=== PATIENT | male | born 1935 | race Caucasian/White ===

== ENCOUNTER 2022-07-24 17:12 | Inpatient (IN) | payer MEDICARE ==
[~2022-07-24] VITALS: Ht 162.6 cm; Wt 54.4 kg
[2022-07-24] VITALS (28 sets, daily range): BP systolic 74–155; BP diastolic 48–86
[~2022-07-24 17:12] MED LIST: CLON0.1T PO; ESCI10TA PO; ESOM40CA PO; GABA300C PO; LISI-651 PO; METO25TA3 PO; SIMV40TA2 PO; WARF-67 PO
[2022-07-24 17:38] LABS: BG BASE EXCESS -0.4 mmol/L (-2.0-2.0); BG CARBOXYHEMOGLOBIN 0.2 % (0.5-1.5); BG DEOXYHEMOGLOBIN 6.4 % (0.0-5.0); BG FRACTION INSPIRED OXYGEN 28; BG HCO3 ACT 23.6 mmol/L (22.0-26.0); BG METHEMOGLOBIN 0.1 % (0.0-1.5); BG OXYGEN SATURATION 93.6 % (92.0-98.5); BG OXYHEMOGLOBIN 93.3 % (94.0-97.0); BG PCO2 36.5 mmHg (35.0-45.0); BG PH 7.429 (7.350-7.450); BG PO2 67.3 mmHg (75.0-100.0); BG SAMPLE SITE RIGHT BRACHIAL; BG TOTAL HEMOGLOBIN 12.5 g/dL (12.0-18.0); BG VENT MODE NASAL CANNULA
[2022-07-24] MEDS ORDERED: MAGNESIUM/ALUMINUM HYDROXIDE/SIMETHICONE 30ML UDC PO PRN (17:45)
[2022-07-24] MEDS ORDERED: IPRATROPIUM/ALBUTEROL 0.5-3(2.5)MG/3ML NEB NEB PRN (17:45)
[2022-07-24] MEDS ORDERED: GUAIFENESIN 200MG/10ML SUGAR FREE UDC PO PRN (17:45)
[2022-07-24] MEDS ORDERED: CLONIDINE 0.1MG TABLET PO PRN (17:45)
[2022-07-24] MEDS ORDERED: HYDROCODONE/ACETAMINOPHEN 5/325MG TABLET PO PRN (17:45)
[2022-07-24] MEDS ORDERED: ONDANSETRON HCL 4MG/2ML INJ IV PRN (17:45)
[2022-07-24] MEDS ORDERED: MORPHINE SULFATE 2 MG/ML CPJ (NOT FOR IM USE) IV PRN (17:45)
[2022-07-24] MEDS ORDERED: ACETAMINOPHEN 325MG TABLET PO PRN ×2 (17:45)
[2022-07-24] MEDS ORDERED: NOREPINEPHRINE 8 MG in DEXT 5% WATER 242 ML IV PRN (18:00)
[2022-07-24] MEDS ORDERED: ENOXAPARIN 40MG/0.4ML SYR SUBCUT SCH (18:00)
[2022-07-24] MEDS ORDERED: PHENYLEPHRINE 50 MG in DEXT 5% WATER 245 ML IV PRN (18:00)
[2022-07-24] MEDS ORDERED: LEVOFLOXACIN 500MG PREMIX 100 ML IV SCH (18:30)
[2022-07-24] MEDS: NOREPINEPHRINE 32 MG in DEXT 5% WATER 218 ML IV PRN (18:48)
[2022-07-24] MEDS ORDERED: WARFARIN SODIUM 2MG TABLET PO NR (21:00)
[2022-07-24] MEDS ORDERED: DEXTROSE 50% WATER 50ML SYRINGE IV PRN ×2 (22:00)
[2022-07-24 22:48] LABS: INR 1.9; PROTHROMBIN TIME 19.3 sec (9.6-11.0)
[2022-07-24] MEDS: DEXT 5%/0.45% NACL 1000ML 1,000 ML IV SCH (23:11)
[2022-07-25] VITALS (92 sets, daily range): BP systolic 70–164; BP diastolic 47–84
[2022-07-25 06:19] LABS: HEMATOCRIT. 39.8 % (42.0-52.0); HEMOGLOBIN. 13.6 g/dL (14.0-18.0); MEAN CORPUSCULAR HEMOGLOBIN 31.1 pg (28.0-32.0); MEAN PLATELET VOLUME 9.3 fl (7.4-10.4); PLATELET 251 x1000/uL (130-400); RED BLOOD CELL COUNT 4.38 mill/uL (4.7-6.1); RED CELL DISTRIBUTION WIDTH 14.7 % (11.6-14.6)
[2022-07-25 06:36] LABS: INR 2.1; PROTHROMBIN TIME 21.4 sec (9.6-11.0)
[2022-07-25] MEDS: BLOOD SUGAR DIAGNOSTIC STRIP TEST SCH ×3 (06:44→12:32)
[2022-07-25 07:52] LABS: FOLIC ACID (FOLATE) SERUM 3.7 ng/mL (>5.38)
[2022-07-25 08:16] LABS: CLARITY URINE CLOUDY (CLEAR); COLOR URINE YELLOW (YELLOW); KETONES URINE NEGATIVE (NEGATIVE); LEUKOCYTE ESTERASE URINE 3+ (NEGATIVE); NITRITE URINE POSITIVE (NEGATIVE); OCCULT BLOOD URINE 3+ (NEGATIVE); PH URINE 5.5 (4.5-8.0); PROTEIN URINE 1+ (NEGATIVE); SPECIFIC GRAVITY URINE 1.014 (1.005-1.030)
[2022-07-25] MEDS: PANTOPRAZOLE 40MG DR TABLET PO SCH (08:34)
[2022-07-25 10:14] LABS: PLATELET ESTIMATE NORMAL
[2022-07-25 10:38] LABS: CHLORIDE 107 mEq/L (98-107)
[2022-07-25 11:16] LABS: PHOSPHORUS 2.7 mg/dL (2.5-4.9); T4 FREE 0.91 ng/dL (0.76-1.46); TOTAL IRON BINDING CAPACITY 186 ug/dL (250-450)
[2022-07-25] MEDS: NOREPINEPHRINE 32 MG in DEXT 5% WATER 218 ML IV PRN (17:18)
[2022-07-25] MEDS: MIDODRINE HCL 5MG TABLET PO SCH (22:41)
[2022-07-26] VITALS (87 sets, daily range): BP systolic 79–137; BP diastolic 30–87
[2022-07-26] MEDS: MIDODRINE HCL 5MG TABLET PO SCH ×4 (05:00→21:59)
[2022-07-26 06:06] LABS: INR 2.1
[2022-07-26 06:15] LABS: HEMATOCRIT. 34.7 % (42.0-52.0); HEMOGLOBIN. 11.8 g/dL (14.0-18.0); MEAN CORPUSCULAR HEMOGLOBIN 31.2 pg (28.0-32.0); MEAN CORPUSCULAR VOLUME 91.8 fL (80.0-94.0); MEAN PLATELET VOLUME 9.2 fl (7.4-10.4); PLATELET 203 x1000/uL (130-400); RED BLOOD CELL COUNT 3.78 mill/uL (4.7-6.1); RED CELL DISTRIBUTION WIDTH 15.2 % (11.6-14.6)
[2022-07-26 06:38] LABS: CHLORIDE 110 mEq/L (98-107)
[2022-07-26] MEDS: DEXT 5%/0.45% NACL 1000ML 1,000 ML IV SCH (06:56)
[2022-07-26 07:09] LABS: PLATELET ESTIMATE NORMAL
[2022-07-26] MEDS: PANTOPRAZOLE 40MG DR TABLET PO SCH (08:24)
[2022-07-26] MEDS ORDERED: MIDODRINE HCL 5MG TABLET PO NR (12:45)
[2022-07-26] MEDS ORDERED: LEVOFLOXACIN 250MG PREMIX 50 ML IV SCH (17:00)
[2022-07-26] MEDS ORDERED: NALOXONE HCL 0.4MG/ML VIAL IV PRN (17:15)
[2022-07-26] MEDS ORDERED: WARFARIN SODIUM 1MG TABLET PO NR (18:00)
[2022-07-26] MEDS: MEMANTINE HCL 10MG TABLET PO SCH (22:00)
[2022-07-27] VITALS (38 sets, daily range): BP systolic 76–132; BP diastolic 35–116
[2022-07-27 05:57] LABS: INR 1.8; PROTHROMBIN TIME 18.5 sec (9.6-11.0)
[2022-07-27] MEDS: MIDODRINE HCL 5MG TABLET PO SCH ×2 (06:35→13:25)
[2022-07-27] MEDS: PANTOPRAZOLE 40MG DR TABLET PO SCH (08:52)
[2022-07-27] MEDS: MEMANTINE HCL 10MG TABLET PO SCH (08:52)
[2022-07-27 12:15] LABS: HEMATOCRIT. 40.5 % (42.0-52.0); HEMOGLOBIN. 13.5 g/dL (14.0-18.0); MEAN CORPUSCULAR HEMOGLOBIN 30.8 pg (28.0-32.0); MEAN CORPUSCULAR VOLUME 92.8 fL (80.0-94.0); MEAN PLATELET VOLUME 9.1 fl (7.4-10.4); PLATELET 229 x1000/uL (130-400); RED BLOOD CELL COUNT 4.37 mill/uL (4.7-6.1); RED CELL DISTRIBUTION WIDTH 14.9 % (11.6-14.6)
[2022-07-27 12:39] LABS: CHLORIDE 109 mEq/L (98-107)
[2022-07-27] MEDS ORDERED: WARFARIN SODIUM 2MG TABLET PO NR (18:00)
[2022-07-27 18:02] LABS: PLATELET ESTIMATE NORMAL
== END 2022-07-27 17:54 | DRG 871 ==
LOC: CVICU 17:12
PROVIDERS: ADMIT Internal Medicine; ATTEND Internal Medicine
PROC: 02HV33Z Insertion of Infusion Device into Superior Vena Cava, Percutaneous Approach (ICD-10-PCS; 2022-07-24)
PROC: B548ZZA Ultrasonography of Superior Vena Cava, Guidance (ICD-10-PCS; 2022-07-24)
PROC: 4A00X4Z Measurement of Central Nervous Electrical Activity, External Approach (ICD-10-PCS; principal; 2022-07-27)
DX: A41.9 Sepsis, unspecified organism (principal); G93.41 Metabolic encephalopathy; S72.002A Fracture of unspecified part of neck of left femur, initial encounter for closed fracture; R65.21 Severe sepsis with septic shock; E44.0 Moderate protein-calorie malnutrition; N39.0 Urinary tract infection, site not specified; D64.9 Anemia, unspecified; E78.5 Hyperlipidemia, unspecified; F02.80 Dementia in other diseases classified elsewhere, unspecified severity, without behavioral disturbance, psychotic disturbance, mood disturbance, and anxiety; G30.9 Alzheimer's disease, unspecified; I10 Essential (primary) hypertension; I48.91 Unspecified atrial fibrillation; K21.9 Gastro-esophageal reflux disease without esophagitis; M19.90 Unspecified osteoarthritis, unspecified site; M81.0 Age-related osteoporosis without current pathological fracture; I71.40 Abdominal aortic aneurysm, without rupture, unspecified; R73.03 Prediabetes; I95.9 Hypotension, unspecified; R00.1 Bradycardia, unspecified; Z68.20 Body mass index [BMI] 20.0-20.9, adult; Z95.2 Presence of prosthetic heart valve; Z79.899 Other long term (current) drug therapy; Z79.01 Long term (current) use of anticoagulants; X58.XXXA Exposure to other specified factors, initial encounter; Z88.0 Allergy status to penicillin; Z86.73 Personal history of transient ischemic attack (TIA), and cerebral infarction without residual deficits; Y93.89 Activity, other specified; Y92.89 Other specified places as the place of occurrence of the external cause
CPT/HCPCS: 36415; 36600; 70551; 80048; 80053; 81003; 82375; 82607; 82728; 82746; 82805; 82962; 83010; 83036; 83540; 83550; 83615; 83735; 84100; 84145; 84439; 84443; 85025; 85044; 92610; 97116; 97162; 97166; J1650; J1956; J3490; J7060

== ENCOUNTER 2022-09-23 20:44 | Inpatient (IN) | payer MEDICARE ==
[~2022-09-23] VITALS: Ht 170.2 cm; Wt 61.7 kg
[2022-09-23 20:00] VITALS: BP 120/66
[~2022-09-23 20:44] MED LIST changes: +CITA10TA16 PO; -CLON0.1T PO; -ESCI10TA PO; -GABA300C PO; -LISI-651 PO; -METO25TA3 PO; +TAMS-11 PO; +TOPUD PO
[2022-09-23 21:00] VITALS: BP 125/75
[2022-09-23] MEDS ORDERED: ALBUTEROL (0.083%) 2.5MG/3ML NEB HHN PRN (21:15)
[2022-09-23] MEDS ORDERED: CLONIDINE 0.1MG TABLET PO PRN (21:30)
[2022-09-24] MEDS: PANTOPRAZOLE 40MG DR TABLET PO SCH (06:26)
[2022-09-24 06:54] LABS: BASOPHILS % 0.7 % (0.0-2.0); EOSINOPHILS % 2.8 % (0.0-5.0); HEMATOCRIT. 26.3 % (42.0-52.0); HEMOGLOBIN. 9.1 g/dL (14.0-18.0); LYMPHOCYTES % 8.3 % (20.0-50.0); MEAN CORPUSCULAR HEMOGLOBIN 33.7 pg (28.0-32.0); MEAN CORPUSCULAR VOLUME 97.3 fL (80.0-94.0); MEAN PLATELET VOLUME 7.7 fl (7.4-10.4); MONOCYTES % 5.4 % (2.0-8.0); NEUTROPHILS % 82.8 % (40.0-76.0); PLATELET 272 x1000/uL (130-400); RED CELL DISTRIBUTION WIDTH 17.8 % (11.6-14.6)
[2022-09-24 07:06] LABS: CHLORIDE 107 mEq/L (98-107)
[2022-09-24 07:25] LABS: INR 3.4; PROTHROMBIN TIME 33.4 sec (9.6-11.0)
[2022-09-24 08:00] VITALS: BP 127/67
[2022-09-24] MEDS: CITALOPRAM HYDROBROMIDE 10MG TABLET PO SCH (09:31)
[2022-09-24] MEDS: TAMSULOSIN HCL 0.4MG SR CAPSULE PO SCH (09:33)
[2022-09-24] MEDS ORDERED: INFLUENZA VACCINE 05/PF 0.5 ML SYRINGE IM ONE (11:00)
[2022-09-24] MEDS: HYDROCODONE/ACETAMINOPHEN 5/325MG TABLET PO PRN (14:32)
[2022-09-24] MEDS: DOCUSATE SODIUM 100MG CAPSULE PO SCH (14:32)
[2022-09-24] MEDS: BISACODYL 5MG TABLET PO PRN (17:51)
[2022-09-24 20:00] VITALS: BP 119/60
[2022-09-25] MEDS: NA PHOS,M-B/NA PHOS,DI-BA ENEMA 118ML PR PRN (05:17)
[2022-09-25 05:59] LABS: PROTHROMBIN TIME 39.3 sec (9.6-11.0)
[2022-09-25] MEDS: HYDROCODONE/ACETAMINOPHEN 5/325MG TABLET PO PRN ×2 (06:11→14:25)
[2022-09-25] MEDS: PANTOPRAZOLE 40MG DR TABLET PO SCH (06:12)
[2022-09-25 06:52] LABS: VITAMIN B12 SERUM 507 pg/mL (211-911)
[2022-09-25 07:44] LABS: INR 4.1
[2022-09-25 08:00] VITALS: BP 111/64
[2022-09-25] MEDS: DOCUSATE SODIUM 100MG CAPSULE PO SCH (09:33)
[2022-09-25] MEDS: CITALOPRAM HYDROBROMIDE 10MG TABLET PO SCH (09:33)
[2022-09-25] MEDS: BISACODYL 5MG TABLET PO PRN (09:34)
[2022-09-25] MEDS: TAMSULOSIN HCL 0.4MG SR CAPSULE PO SCH (09:34)
[2022-09-25] MEDS ORDERED: NALOXONE HCL 0.4MG/ML VIAL IV PRN (10:45)
[2022-09-25 20:00] VITALS: BP 120/70
[2022-09-26] MEDS: HYDROCODONE/ACETAMINOPHEN 5/325MG TABLET PO PRN ×2 (06:42→15:41)
[2022-09-26] MEDS: PANTOPRAZOLE 40MG DR TABLET PO SCH (06:43)
[2022-09-26 08:00] VITALS: BP 112/63
[2022-09-26 08:22] LABS: PROTHROMBIN TIME 39.8 sec (9.6-11.0)
[2022-09-26 08:25] LABS: INR 4.1
[2022-09-26] MEDS: CITALOPRAM HYDROBROMIDE 10MG TABLET PO SCH (09:10)
[2022-09-26] MEDS: DOCUSATE SODIUM 100MG CAPSULE PO SCH ×2 (09:11→16:44)
[2022-09-26] MEDS: TAMSULOSIN HCL 0.4MG SR CAPSULE PO SCH (09:11)
[2022-09-26 19:51] VITALS: BP 127/65
[2022-09-27] MEDS: PANTOPRAZOLE 40MG DR TABLET PO SCH ×2 (07:00→09:48)
[2022-09-27 07:38] LABS: INR 3.5; PROTHROMBIN TIME 34.1 sec (9.6-11.0)
[2022-09-27 08:00] VITALS: BP 122/62
[2022-09-27] MEDS: TAMSULOSIN HCL 0.4MG SR CAPSULE PO SCH (09:49)
[2022-09-27] MEDS: DOCUSATE SODIUM 100MG CAPSULE PO SCH ×2 (09:51→16:24)
[2022-09-27] MEDS: HYDROCODONE/ACETAMINOPHEN 5/325MG TABLET PO PRN ×2 (09:51→16:25)
[2022-09-27] MEDS: CITALOPRAM HYDROBROMIDE 10MG TABLET PO SCH (09:52)
[2022-09-27 20:00] VITALS: BP 112/58
[2022-09-28 06:50] LABS: INR 2.9; PROTHROMBIN TIME 28.8 sec (9.6-11.0)
[2022-09-28] MEDS: HYDROCODONE/ACETAMINOPHEN 5/325MG TABLET PO PRN ×2 (07:48→20:36)
[2022-09-28 08:00] VITALS: BP 125/69
[2022-09-28] MEDS: DOCUSATE SODIUM 100MG CAPSULE PO SCH ×2 (10:07→18:34)
[2022-09-28] MEDS: TAMSULOSIN HCL 0.4MG SR CAPSULE PO SCH (10:07)
[2022-09-28] MEDS: CITALOPRAM HYDROBROMIDE 10MG TABLET PO SCH (10:07)
[2022-09-28] MEDS ORDERED: WARFARIN SODIUM 2.5MG TABLET PO SCH (18:00)
[2022-09-28 20:00] VITALS: BP 108/62
[2022-09-29] MEDS: HYDROCODONE/ACETAMINOPHEN 5/325MG TABLET PO PRN (03:23)
[2022-09-29 06:42] LABS: INR 2.5; PROTHROMBIN TIME 25.4 sec (9.6-11.0)
[2022-09-29] MEDS: FAMOTIDINE 20MG TABLET PO SCH (06:42)
[2022-09-29 08:00] VITALS: BP 118/58
[2022-09-29] MEDS: TAMSULOSIN HCL 0.4MG SR CAPSULE PO SCH (09:00)
[2022-09-29] MEDS: CITALOPRAM HYDROBROMIDE 10MG TABLET PO SCH (09:32)
[2022-09-29] MEDS: DOCUSATE SODIUM 100MG CAPSULE PO SCH ×2 (09:33→17:27)
[2022-09-29] MEDS ORDERED: WARFARIN SODIUM 2.5MG TABLET PO SCH (18:00)
[2022-09-29 20:00] VITALS: BP 110/59
[2022-09-30] MEDS: FAMOTIDINE 20MG TABLET PO SCH (06:29)
[2022-09-30 06:47] LABS: INR 2.7; PROTHROMBIN TIME 26.5 sec (9.6-11.0)
[2022-09-30 08:00] VITALS: BP 118/61
[2022-09-30] MEDS: CITALOPRAM HYDROBROMIDE 10MG TABLET PO SCH (09:41)
[2022-09-30] MEDS: DOCUSATE SODIUM 100MG CAPSULE PO SCH ×2 (09:41→19:38)
[2022-09-30] MEDS: TAMSULOSIN HCL 0.4MG SR CAPSULE PO SCH (09:43)
[2022-09-30] MEDS ORDERED: WARFARIN SODIUM 2MG TABLET PO SCH (18:00)
[2022-09-30 20:00] VITALS: BP 110/54
[2022-10-01] MEDS: NA PHOS,M-B/NA PHOS,DI-BA ENEMA 118ML PR PRN (02:16)
[2022-10-01] MEDS: ACETAMINOPHEN 325MG TABLET PO PRN (05:26)
[2022-10-01] MEDS: FAMOTIDINE 20MG TABLET PO SCH (06:16)
[2022-10-01 08:00] VITALS: BP 122/61
[2022-10-01] MEDS: DOCUSATE SODIUM 100MG CAPSULE PO SCH ×2 (09:14→17:00)
[2022-10-01] MEDS: CITALOPRAM HYDROBROMIDE 10MG TABLET PO SCH (09:14)
[2022-10-01] MEDS: TAMSULOSIN HCL 0.4MG SR CAPSULE PO SCH (09:15)
[2022-10-01 13:25] LABS: INR 2.5; PROTHROMBIN TIME 25.3 sec (9.6-11.0)
[2022-10-01] MEDS ORDERED: WARFARIN SODIUM 2MG TABLET PO SCH (18:00)
[2022-10-01 20:08] VITALS: BP 103/67
[2022-10-02] MEDS: ACETAMINOPHEN 325MG TABLET PO PRN (05:27)
[2022-10-02 05:45] VITALS: BP 149/65
[2022-10-02] MEDS: FAMOTIDINE 20MG TABLET PO SCH (06:35)
[2022-10-02 08:00] VITALS: BP 139/73
[2022-10-02 08:18] LABS: PROTHROMBIN TIME 20.8 sec (9.6-11.0)
[2022-10-02] MEDS: CITALOPRAM HYDROBROMIDE 10MG TABLET PO SCH (08:49)
[2022-10-02] MEDS: TAMSULOSIN HCL 0.4MG SR CAPSULE PO SCH (08:50)
[2022-10-02] MEDS: DOCUSATE SODIUM 100MG CAPSULE PO SCH ×2 (08:50→17:11)
[2022-10-02] MEDS ORDERED: IPRATROPIUM/ALBUTEROL 0.5-3(2.5)MG/3ML NEB HHN PRN (12:15)
[2022-10-02] MEDS ORDERED: ALBUTEROL (0.083%) 2.5MG/3ML NEB HHN PRN (12:30)
[2022-10-02] MEDS ORDERED: IPRATROPIUM BROMIDE (0.02%) 0.5MG/2.5ML NEB HHN PRN (12:30)
[2022-10-02] MEDS: HYDROCODONE/ACETAMINOPHEN 5/325MG TABLET PO PRN (17:12)
[2022-10-02] MEDS ORDERED: WARFARIN SODIUM 3MG TABLET PO SCH (18:00)
[2022-10-02 20:00] VITALS: BP 105/56
[2022-10-02 20:50] LABS: HEMATOCRIT. 27.9 % (42.0-52.0); HEMOGLOBIN. 9.5 g/dL (14.0-18.0); MEAN CORPUSCULAR HEMOGLOBIN 32.1 pg (28.0-32.0); MEAN CORPUSCULAR VOLUME 94.7 fL (80.0-94.0); MEAN PLATELET VOLUME 6.8 fl (7.4-10.4); PLATELET 470 x1000/uL (130-400); RED BLOOD CELL COUNT 2.95 mill/uL (4.7-6.1); RED CELL DISTRIBUTION WIDTH 17.5 % (11.6-14.6)
[2022-10-02 21:08] LABS: CHLORIDE 106 mEq/L (98-107)
[2022-10-02 21:14] LABS: PLATELET ESTIMATE INCREASED
[2022-10-03 00:03] LABS: CLARITY URINE CLOUDY (CLEAR); COLOR URINE DARK YELLOW (YELLOW); KETONES URINE TRACE (NEGATIVE); LEUKOCYTE ESTERASE URINE 2+ (NEGATIVE); NITRITE URINE POSITIVE (NEGATIVE); OCCULT BLOOD URINE 2+ (NEGATIVE); PROTEIN URINE 1+ (NEGATIVE); SPECIFIC GRAVITY URINE 1.021 (1.005-1.030)
[2022-10-03] MEDS: FAMOTIDINE 20MG TABLET PO SCH (06:09)
[2022-10-03] MEDS: HYDROCODONE/ACETAMINOPHEN 5/325MG TABLET PO PRN (06:28)
[2022-10-03 07:16] LABS: HEMATOCRIT. 27.2 % (42.0-52.0); HEMOGLOBIN. 9.3 g/dL (14.0-18.0); MEAN CORPUSCULAR HEMOGLOBIN 32.3 pg (28.0-32.0); MEAN CORPUSCULAR VOLUME 94.3 fL (80.0-94.0); MEAN PLATELET VOLUME 7.3 fl (7.4-10.4); PLATELET 490 x1000/uL (130-400); RED BLOOD CELL COUNT 2.89 mill/uL (4.7-6.1); RED CELL DISTRIBUTION WIDTH 17.6 % (11.6-14.6)
[2022-10-03 07:23] LABS: INR 2.7; PROTHROMBIN TIME 26.9 sec (9.6-11.0)
[2022-10-03 08:00] VITALS: BP 87/49
[2022-10-03] MEDS: TAMSULOSIN HCL 0.4MG SR CAPSULE PO SCH (09:17)
[2022-10-03] MEDS: DOCUSATE SODIUM 100MG CAPSULE PO SCH ×2 (09:18→17:51)
[2022-10-03] MEDS: CITALOPRAM HYDROBROMIDE 10MG TABLET PO SCH (09:18)
[2022-10-03] MEDS: ACETAMINOPHEN 325MG TABLET PO PRN (14:17)
[2022-10-03 16:56] LABS: PLATELET ESTIMATE INCREASED
[2022-10-03] MEDS ORDERED: LIDOCAINE HCL 1% 10 MG/ML 10ML VIAL INJ NR (18:00)
[2022-10-03] MEDS ORDERED: CEFTRIAXONE SODIUM 1 G/VIAL IM NR (18:00)
[2022-10-03] MEDS ORDERED: CEFTRIAXONE 1 G PREMIX 50 ML IV SCH (18:00)
[2022-10-03] MEDS ORDERED: WARFARIN SODIUM 2.5MG TABLET PO SCH (18:00)
[2022-10-03] MEDS ORDERED: CEFTRIAXONE 1,000 MG in DEXTROSE 5% WATER 50 ML IV SCH (18:00)
[2022-10-04] MEDS: FAMOTIDINE 20MG TABLET PO SCH (06:19)
[2022-10-04 07:04] LABS: INR 2.4; PROTHROMBIN TIME 24.3 sec (9.6-11.0)
[2022-10-04 08:00] VITALS: BP 115/51
[2022-10-04] MEDS: CITALOPRAM HYDROBROMIDE 10MG TABLET PO SCH (10:07)
[2022-10-04] MEDS: DOCUSATE SODIUM 100MG CAPSULE PO SCH ×2 (10:07→17:23)
[2022-10-04] MEDS: ACETAMINOPHEN 325MG TABLET PO PRN ×2 (10:07→15:19)
[2022-10-04] MEDS: TAMSULOSIN HCL 0.4MG SR CAPSULE PO SCH (10:08)
[2022-10-04] MEDS: CEFTRIAXONE 1,000 MG in DEXTROSE 5% WATER 50 ML IV SCH (17:22)
[2022-10-04] MEDS ORDERED: WARFARIN SODIUM 2.5MG TABLET PO NR (18:00)
[2022-10-04 19:47] VITALS: BP 113/63
[2022-10-05 06:20] LABS: INR 2.1; PROTHROMBIN TIME 21.7 sec (9.6-11.0)
[2022-10-05] MEDS: FAMOTIDINE 20MG TABLET PO SCH (06:38)
[2022-10-05 08:00] VITALS: BP 109/54
[2022-10-05] MEDS: TAMSULOSIN HCL 0.4MG SR CAPSULE PO SCH (09:44)
[2022-10-05] MEDS: DOCUSATE SODIUM 100MG CAPSULE PO SCH ×2 (09:44→18:25)
[2022-10-05] MEDS: BISACODYL 5MG TABLET PO PRN (09:44)
[2022-10-05] MEDS: CITALOPRAM HYDROBROMIDE 10MG TABLET PO SCH (09:44)
[2022-10-05] MEDS ORDERED: WARFARIN SODIUM 2.5MG TABLET PO NR (18:00)
[2022-10-05] MEDS: CEFTRIAXONE 1,000 MG in DEXTROSE 5% WATER 50 ML IV SCH (18:24)
[2022-10-05 20:00] VITALS: BP 109/52
[2022-10-06] MEDS: BISACODYL 5MG TABLET PO PRN (06:03)
[2022-10-06] MEDS: FAMOTIDINE 20MG TABLET PO SCH (06:03)
[2022-10-06 06:31] LABS: INR 2.6
[2022-10-06 08:00] VITALS: BP 126/58
[2022-10-06] MEDS: TAMSULOSIN HCL 0.4MG SR CAPSULE PO SCH (09:12)
[2022-10-06] MEDS: DOCUSATE SODIUM 100MG CAPSULE PO SCH ×2 (09:13→18:16)
[2022-10-06] MEDS: CITALOPRAM HYDROBROMIDE 10MG TABLET PO SCH (09:13)
[2022-10-06 09:52] LABS: EOSINOPHILS % 2.5 % (0.0-5.0); HEMATOCRIT. 28.3 % (42.0-52.0); HEMOGLOBIN. 9.4 g/dL (14.0-18.0); LYMPHOCYTES % 7.2 % (20.0-50.0); MEAN CORPUSCULAR HEMOGLOBIN 31.6 pg (28.0-32.0); MEAN CORPUSCULAR VOLUME 94.8 fL (80.0-94.0); MEAN PLATELET VOLUME 8.1 fl (7.4-10.4); MONOCYTES % 7.9 % (2.0-8.0); NEUTROPHILS % 81.4 % (40.0-76.0); PLATELET 350 x1000/uL (130-400); RED BLOOD CELL COUNT 2.99 mill/uL (4.7-6.1); RED CELL DISTRIBUTION WIDTH 17.8 % (11.6-14.6)
[2022-10-06 10:05] LABS: CHLORIDE 109 mEq/L (98-107)
[2022-10-06] MEDS ORDERED: CEFTRIAXONE 1,000 MG in DEXTROSE 5% WATER 50 ML IV SCH (18:00)
[2022-10-06] MEDS ORDERED: WARFARIN SODIUM 2MG TABLET PO NR (18:00)
[2022-10-06 19:38] VITALS: BP 132/41
[2022-10-07] MEDS: FAMOTIDINE 20MG TABLET PO SCH (06:39)
[2022-10-07 06:44] LABS: BASOPHILS % 1.2 % (0.0-2.0); EOSINOPHILS % 3.3 % (0.0-5.0); HEMATOCRIT. 30.3 % (42.0-52.0); HEMOGLOBIN. 10.2 g/dL (14.0-18.0); LYMPHOCYTES % 10.4 % (20.0-50.0); MEAN CORPUSCULAR HEMOGLOBIN 31.4 pg (28.0-32.0); MEAN PLATELET VOLUME 7.9 fl (7.4-10.4); MONOCYTES % 6.5 % (2.0-8.0); NEUTROPHILS % 78.6 % (40.0-76.0); PLATELET 396 x1000/uL (130-400); RED BLOOD CELL COUNT 3.26 mill/uL (4.7-6.1); RED CELL DISTRIBUTION WIDTH 17.2 % (11.6-14.6)
[2022-10-07 06:53] LABS: INR 2.7; PROTHROMBIN TIME 26.5 sec (9.6-11.0)
[2022-10-07] MEDS: ACETAMINOPHEN 325MG TABLET PO PRN (07:08)
[2022-10-07 07:12] LABS: CHLORIDE 106 mEq/L (98-107)
[2022-10-07 08:00] VITALS: BP 120/57
[2022-10-07] MEDS: BISACODYL 5MG TABLET PO PRN (09:54)
[2022-10-07] MEDS: CITALOPRAM HYDROBROMIDE 10MG TABLET PO SCH (09:55)
[2022-10-07] MEDS: DOCUSATE SODIUM 100MG CAPSULE PO SCH (09:55)
[2022-10-07] MEDS: TAMSULOSIN HCL 0.4MG SR CAPSULE PO SCH (09:55)
[2022-10-07] MEDS ORDERED: LEVO750T68 PO (10:27)
[2022-10-07 11:51] VITALS: BP 120/57
[2022-10-07] MEDS ORDERED: CEFTRIAXONE 1,000 MG in DEXTROSE 5% WATER 50 ML IV SCH (13:00)
== END 2022-10-07 15:55 | DRG 535 ==
PROVIDERS: ADMIT Psychiatry & Neurology Neurology; ATTEND Internal Medicine
DX: S72.115A Nondisplaced fracture of greater trochanter of left femur, initial encounter for closed fracture (principal); A41.51 Sepsis due to Escherichia coli [E. coli]; I63.81 Other cerebral infarction due to occlusion or stenosis of small artery; F03.93 Unspecified dementia, unspecified severity, with mood disturbance; F03.94 Unspecified dementia, unspecified severity, with anxiety; G93.40 Encephalopathy, unspecified; N39.0 Urinary tract infection, site not specified; R73.03 Prediabetes; K59.00 Constipation, unspecified; K21.9 Gastro-esophageal reflux disease without esophagitis; I45.10 Unspecified right bundle-branch block; I71.40 Abdominal aortic aneurysm, without rupture, unspecified; I10 Essential (primary) hypertension; D64.9 Anemia, unspecified; E78.5 Hyperlipidemia, unspecified; R32 Unspecified urinary incontinence; B96.89 Other specified bacterial agents as the cause of diseases classified elsewhere; K57.90 Diverticulosis of intestine, part unspecified, without perforation or abscess without bleeding; R29.6 Repeated falls; W01.0XXA Fall on same level from slipping, tripping and stumbling without subsequent striking against object, initial encounter; Z86.16 Personal history of COVID-19; Z86.73 Personal history of transient ischemic attack (TIA), and cerebral infarction without residual deficits; Z88.0 Allergy status to penicillin; Z87.81 Personal history of (healed) traumatic fracture; Z88.2 Allergy status to sulfonamides; Z91.81 History of falling; Z95.2 Presence of prosthetic heart valve; Y93.89 Activity, other specified; Y92.89 Other specified places as the place of occurrence of the external cause; Y99.8 Other external cause status
CPT/HCPCS: 36415; 70551; 80048; 80053; 80061; 81003; 82607; 83735; 84134; 84145; 84443; 85025; 87077; 87186; 87426; 90686; 92523; 93005; 93880; 93970; 97110; 97112; 97116; 97163; 97166; 97530; 97535; 97542; A6261; C1893; J0696; J3490; J7060